=== PATIENT | male | born 1960 | race Two or more races ===

== ENCOUNTER 2019-08-12 12:37 | Outpatient (CLI) | payer OTHER ==
[~2019-08-12 12:37] MED LIST: IRBESARTAN-HCT1 EAC1; METOPROLOL SUCC25 MG
== END 2019-08-12 12:49 | disposition home or self-care (01) ==
LOC: MAMO-SONO 12:37
DX: N63.24 Unspecified lump in the left breast, lower inner quadrant (principal); D21.11 Benign neoplasm of connective and other soft tissue of right upper limb, including shoulder